=== PATIENT | male | born 1965 | race Caucasian/White ===

== ENCOUNTER 2020-02-02 05:14 | Emergency (ER) | payer SELFPAY ==
[~2020-02-02] VITALS: Ht 188 cm; Wt 104.5 kg
[2020-02-02 05:20] VITALS: Ht 188 cm; Wt 104.5 kg
[2020-02-02] MEDS ORDERED: LISINOPRIL40 MG PO (05:21)
[2020-02-02] MEDS ORDERED: HYDROCODON-ACE1 EA10 PO (05:23)
[2020-02-02 06:06] VITALS: BP 148/103
== END 2020-02-02 06:09 | disposition home or self-care (01) ==
LOC: D.ER 05:14
DX: M25.562 Pain in left knee (principal)